=== PATIENT | female | born 1965 | race Caucasian/White ===

== ENCOUNTER 2017-10-09 05:45 | Day surgery (SDC) | payer OTHER ==
[~2017-10-09] VITALS: Ht 165.1 cm; Wt 76.7 kg
[2017-10-09] MEDS ORDERED: IBAN150T PO (07:01)
[2017-10-09] MEDS ORDERED: METO50TE2 PO (07:01)
[2017-10-09] MEDS ORDERED: ATI.5 PO (07:01)
[2017-10-09] MEDS ORDERED: LORA10TA19 PO (07:01)
[2017-10-09] MEDS ORDERED: OSC500 PO (07:01)
[2017-10-09] MEDS ORDERED: ATOR20TA PO (07:01)
[2017-10-09] MEDS ORDERED: ASPI81CT89 PO (07:01)
[2017-10-09] MEDS ORDERED: VAS5 PO (07:01)
[2017-10-09] MEDS ORDERED: LIDOCAINE 2% 100 MG/5 ML UJET TP ONE (07:33)
[2017-10-09] MEDS ORDERED: KETOROLAC 30 MG/ML VIAL ONE (07:33)
== END 2017-10-09 08:55 | disposition home or self-care (01) ==
LOC: MDS 05:45 → MMU 06:09 → MDS 08:55
PROVIDERS: ATTEND Internal Medicine Gastroenterology
DX: Z12.11 Encounter for screening for malignant neoplasm of colon (principal); K57.90 Diverticulosis of intestine, part unspecified, without perforation or abscess without bleeding; K64.8 Other hemorrhoids; I10 Essential (primary) hypertension; Z98.890 Other specified postprocedural states; E78.5 Hyperlipidemia, unspecified; Z79.82 Long term (current) use of aspirin; Z79.899 Other long term (current) drug therapy
CPT/HCPCS: 45378; J1885